=== PATIENT | female | born 1960 | race Caucasian/White ===

== ENCOUNTER 2017-06-29 10:44 | Observation (INO) | payer OTHER ==
[2017-06-29] VITALS (387 sets, daily range): BP systolic 90–122; BP diastolic 71–81; PULSE 57–66; TEMP 97; O2SAT 89–100
[~2017-06-29] VITALS: Ht 157.5 cm; Wt 44.5 kg
[~2017-06-29 10:44] MED LIST: CATAPRES 0.1MG0.1 MG PO; CELEXA40 MG PO; CEPHALEXIN500 M1 PO; CLONIDINE0.1 MG PO; COREG 25MG25 MG/TAB PO; COREG25 MG PO; ESTRING0.0075 MG/; GABAPENTIN300 MG PO; GLUCOSAMINE & C1 CAP PO; MS CONTIN 330 MG/TAB PO; MULTIPLE VITAMI1 CAP PO; NAMENDA XR 7 PO; NATURE'S BLE1000 MCG PO; NEURONTIN300 MG/CAP PO; NORCO 325 MG-101 TA1 PO; NORCO 325 MG-7.1 TAB PO; NORVASC 10MG10 MG PO; OXYCODONE5 MG PO; PERCOCET 325 MG1 TA3 PO; PERCOCET 325 MG1 TAB PO; PERCR 7.5; PERCR 7.5 PO; PERIDEX (CHLOR480 ML MM; PHENERGAN 25 TA25 MG PO; PREMARIN 0.60.625 M1 PO; PREMPRO 0.3 MG-1 TAB PO; REQUIP 1MG T1 MG/TAB PO; REQUIP0.25 MG PO; REQUIP5 MG PO; SOMA 350MG350 MG/TAB PO; SOMA350 MG PO; ULTRAM 50MG TAB50 MG PO; VALIUM 5MG T5 MG/TAB PO; VICODIN 5/5001 UDTAB PO
[2017-06-29 12:05] LABS: BASO % 0.4 % (0.0-2.0); EOS # 0.3 (0.0-0.7); EOS % 3.1 % (0-4.0); GRAN % 54.1 % (42.2-75.2); LYMPH # 3.3 (1.2-3.4); LYMPH % 35.8 % (20.0-51.0); MEAN CELL VOLUME 92 fl (80.0-100.0); MEAN CORPUSCULAR HGB CONC 34 g/dl (33.0-37.0); MONO # 0.6 (0.1-0.6); MONO % 6.4 % (1.7-9.3); PLATELET COUNT 210 K/mm3 (130-400); RED BLOOD COUNT 3.55 M/mm3 (4.10-5.30); REDCELL DISTRIBUTION WIDTH-CV 15.3 % (11.5-14.5); WHITE BLOOD COUNT 9.2 K/mm3 (4.8-10.8)
[2017-06-29 12:10] LABS: HEMATOCRIT 32.7 % (37.0-47.0); MEAN CORPUSCULAR HEMOGLOBIN 31 pg (27.0-31.0)
[2017-06-29 12:16] LABS: ADJUSTED CALCIUM 8.8 mg/dL (8.4-10.2); ALBUMIN 3.8 gm/dL (3.5-5.0); BILIRUBIN,TOTAL 0.4 mg/dL (0.0-1.0); C-REACTIVE PROTEIN 1.4 mg/dL (0.0-0.9); CALCIUM 8.6 mg/dL (8.4-10.2); CREATININE, serum 0.81 mg/dL (0.52-1.25); POTASSIUM 3.9 mmol/L (3.4-5.0); TOTAL PROTEIN 6.8 gm/dL (6.4-8.2)
[2017-06-29 12:33] LABS: ARTERIAL BLD GAS O2 SATURATION 94.5 % (92-100); ARTERIAL BLOOD GAS BASE EXCESS 2.3 (-2-2); ARTERIAL BLOOD GAS HCO3 25.8 meq/L (22-26); ARTERIAL BLOOD GAS PHT 7.47 C (7.35-7.45); ARTERIAL BLOOD GAS PO2 66.5 mmHg (80-100); ARTERIAL BLOOD GAS PO2T 66.5 (80-100); ARTERIAL BLOOD GAS pH 7.47 (7.35-7.45); OXYHEMOGLOBIN 89.8 %
[2017-06-29 12:34] LABS: ATS? YES
[2017-06-29 13:06] LABS: PH 5 (5-8); SQUAMOUS EPITHELIAL 0-2 /hpf; URINE APPEARANCE Clear; URINE BACTERIA Rare /hpf; URINE BILIRUBIN Negative (NEGATIVE); URINE BLOOD Negative (NEGATIVE); URINE COLOR Yellow; URINE GLUCOSE Negative (NEGATIVE); URINE KETONE Negative (NEGATIVE); URINE RBC 0-2 /hpf; URINE UROBILINOGEN Negative (NEGATIVE); URINE WBC 0-2 /hpf
[2017-06-29 13:13] LABS: AMPHETAMINE URINE NEGATIVE; BARBITURATES URINE NEGATIVE; BENZODIAZEPINES URINE POSITIVE; BUPRENORPHINE URINE NEGATIVE; METHADONE URINE NEGATIVE; OPIATES URINE POSITIVE; OXYCODONE URINE POSITIVE; PHENCYCLIDINE URINE NEGATIVE; PROPOXYPHENE URINE NEGATIVE; THC CANNABINOIDS URINE NEGATIVE
[2017-06-30] VITALS (331 sets, daily range): BP systolic 107–125; BP diastolic 67–84; PULSE 56–68; TEMP 96.8–97.9; O2SAT 92–100
[2017-06-30 06:14] LABS: BASO # 0.1 (0.0-0.2); BASO % 0.7 % (0.0-2.0); EOS # 0.2 (0.0-0.7); EOS % 3.5 % (0-4.0); GRAN # 3.2 (1.4-6.5); GRAN % 46.5 % (42.2-75.2); LYMPH % 43.6 % (20.0-51.0); MEAN CELL VOLUME 91 fl (80.0-100.0); MEAN CORPUSCULAR HGB CONC 33 g/dl (33.0-37.0); MEAN PLATELET VOLUME 10.2 fl (7.4-10.4); MONO # 0.4 (0.1-0.6); MONO % 5.6 % (1.7-9.3); PLATELET COUNT 178 K/mm3 (130-400); RED BLOOD COUNT 3.64 M/mm3 (4.10-5.30); REDCELL DISTRIBUTION WIDTH-CV 15.4 % (11.5-14.5); WHITE BLOOD COUNT 6.9 K/mm3 (4.8-10.8)
[2017-06-30 06:16] LABS: HEMATOCRIT 33.1 % (37.0-47.0); MEAN CORPUSCULAR HEMOGLOBIN 30 pg (27.0-31.0)
[2017-06-30 06:30] LABS: ADJUSTED CALCIUM 8.7 mg/dL (8.4-10.2); ALBUMIN 3.1 gm/dL (3.5-5.0); BILIRUBIN,TOTAL 0.3 mg/dL (0.0-1.0); CREATININE, serum 0.64 mg/dL (0.52-1.25); POTASSIUM 3.3 mmol/L (3.4-5.0); TOTAL PROTEIN 5.8 gm/dL (6.4-8.2)
== END 2017-06-30 11:50 | disposition home or self-care (01) ==
LOC: COL.ER 10:44 → ICU 14:33
PROVIDERS: Family Medicine; Internal Medicine; Nurse Practitioner
DX: R41.82 Altered mental status, unspecified (principal); T40.601A Poisoning by unspecified narcotics, accidental (unintentional), initial encounter; T40.2X1A Poisoning by other opioids, accidental (unintentional), initial encounter; T42.4X1A Poisoning by benzodiazepines, accidental (unintentional), initial encounter; Y92.810 Car as the place of occurrence of the external cause; I10 Essential (primary) hypertension; J45.909 Unspecified asthma, uncomplicated; E87.6 Hypokalemia
CPT/HCPCS: G0378; J1650; J2060; J2310; J7030

== ENCOUNTER → 2019-02-22 | Outpatient (CLI) | payer BC ==
[~2019-02-22] VITALS: Ht 157.5 cm; Wt 48.3 kg
[~2019-02-22] MED LIST changes: +BIOTIN10000 MC1 PO
[2019-02-22 14:30] VITALS: BP 120/79; PULSE 68
[2019-02-22 15:10] VITALS: BP 146/94; PULSE 71
--- NOTE | 2019-02-22 15:25 | NUR ---
pt out to car per wheelchair. Pain unchanged. Pt up and into car without difficulty.
== END ==
LOC: COL.RAD 13:30
DX: M54.12 Radiculopathy, cervical region (principal)
CPT/HCPCS: J1100; Q9965

== ENCOUNTER → 2019-03-07 | Outpatient (CLI) | payer BC | LOC: COL.RAD 07:20 | DX: M50.122 Cervical disc disorder at C5-C6 level with radiculopathy (principal); M48.02 Spinal stenosis, cervical region; M43.12 Spondylolisthesis, cervical region ==

== ENCOUNTER 2020-04-19 11:02 | Day surgery (SDC) | payer BC ==
[~2020-04-19] VITALS: Ht 157.5 cm; Wt 67.2 kg
[2020-04-19 11:19] VITALS: BP 122/84; PULSE 68; TEMP 97.9
[2020-04-19] MEDS ORDERED: VIIBRYD40 MG PO (11:33)
[2020-04-19] MEDS ORDERED: DEPAKOTE 250MG250 MG PO (11:34)
[2020-04-19] MEDS ORDERED: PROVENTIL0.09 MG/A1 IH (11:45)
[2020-04-19 12:15] VITALS: BP 126/97; PULSE 68; TEMP 98.3
--- NOTE | 2020-04-19 12:15 | NUR ---
Patient arrives to [facility] via cart, accompanied by endo RN Courtney Arambula. Bedside report is received. The patient needs to void. She ambulates to the restroom and then returns to room. Monitoring is applied -VSS and WNL on room air. SHe is alert and oriented. She denies pain or nausea. She is offered and receives water and a muffin.
[2020-04-19 12:30] VITALS: BP 118/77; PULSE 55
--- NOTE | 2020-04-19 12:30 | NUR ---
Patient is resting comfortably in room. Tolerating PO well. Denies pain, nausea, or need.
--- NOTE | 2020-04-19 12:44 | NUR ---
Dr. Riojas at the bedside at this time.
[2020-04-19 12:45] VITALS: BP 122/80; PULSE 60
--- NOTE | 2020-04-19 12:45 | NUR ---
Patient resting comfortably in room. Denies pain, nausea, or need.
--- NOTE | 2020-04-19 12:55 | NUR ---
Patient has met discharge criteria. Discharge instructions are discussed. She denies any questions and verbalizes understanding. PIV is removed with catheter intact and hemostasis achieved. She changes to her clothing independently. She is escorted to the exit via wheelchair by staff. She is discharged to home with ride in private vehicle at 1255.
== END 2020-04-19 12:55 | disposition home or self-care (01) ==
LOC: SDCO 11:02
DX: Z12.11 Encounter for screening for malignant neoplasm of colon (principal); K57.30 Diverticulosis of large intestine without perforation or abscess without bleeding; K64.0 First degree hemorrhoids; Z11.59 Encounter for screening for other viral diseases; Z86.010 Personal history of colon polyps; Z88.5 Allergy status to narcotic agent; Z88.8 Allergy status to other drugs, medicaments and biological substances; Z90.710 Acquired absence of both cervix and uterus; Z90.49 Acquired absence of other specified parts of digestive tract
CPT/HCPCS: J2704; J7030

== ENCOUNTER 2021-01-22 14:06 | Emergency (ER) | payer BC ==
[~2021-01-22] VITALS: Ht 157.5 cm; Wt 49.6 kg
[~2021-01-22 14:06] MED LIST changes: +DEPAKOTE 250MG250 MG PO; +PROVENTIL0.09 MG/A1 IH; +VIIBRYD40 MG PO
[2021-01-22 19:30] VITALS: BP 121/75; PULSE 56; TEMP 97.6
[2021-01-23 12:56] LABS: COLLECTION METHOD CLEAN CATCH
[2021-01-23 14:05] LABS: PH 7 (5-8); SQUAMOUS EPITHELIAL None Seen /hpf; URINE APPEARANCE Clear; URINE BACTERIA Rare /hpf; URINE BILIRUBIN Negative (NEGATIVE); URINE BLOOD Negative (NEGATIVE); URINE COLOR Straw; URINE GLUCOSE Negative (NEGATIVE); URINE KETONE Negative (NEGATIVE); URINE LEUKOCYTE ESTERASE Negative (NEGATIVE); URINE NITRATE Negative (NEGATIVE); URINE PROTEIN(semi-quant) Negative (NEGATIVE); URINE RBC 0-2 /hpf; URINE UROBILINOGEN Negative (NEGATIVE)
[2021-01-23 14:06] LABS: ALANINE AMINOTRANSFERASE 14 U/L (4-34); ALBUMIN 3.8 gm/dL (3.5-5.0); ALKALINE PHOSPHATASE 64 U/L (50-136); ANION GAP 3 mmol/L (7-16); AST,SGOT 29 U/L (15-37); BILIRUBIN,TOTAL 0.2 mg/dL (0.0-1.0); BLOOD UREA NITROGEN 10 mg/dL (7-17); CALCIUM 8.6 mg/dL (8.4-10.2); CARBON DIOXIDE 32 mmol/L (22-30); CHLORIDE 106 mmol/L (98-107); CREATININE, serum 0.73 (0.52-1.25); GLUCOSE 82 mg/dL (74-106); POTASSIUM 3.6 mmol/L (3.4-5.0); SODIUM 140 mmol/L (137-145); TOTAL PROTEIN 6.6 gm/dL (6.4-8.2); TRICYCLIC ANTIDEPRESS URINE NEGATIVE
[2021-01-23 14:07] LABS: ALCOHOL(ethanol),MEDICAL < 10 mg/dL
[2021-01-23 23:42] LABS: BASO # 0.1 (0.0-0.2); BASO % 0.6 % (0.0-2.0); EOS # 0.3 (0.0-0.7); EOS % 4.4 % (0-4.0); GRAN # 3.6 (1.4-6.5); GRAN % 46.1 % (42.2-75.2); HEMOGLOBIN 11.2 g/dl (12.5-16.0); LYMPH # 3.4 (1.2-3.4); LYMPH % 44.2 % (20.0-51.0); MEAN CELL VOLUME 95 fl (80.0-100.0); MEAN CORPUSCULAR HEMOGLOBIN 31 pg (27.0-31.0); MEAN CORPUSCULAR HGB CONC 32 g/dl (33.0-37.0); MEAN PLATELET VOLUME 9.6 fl (7.4-10.4); MONO # 0.3 (0.1-0.6); MONO % 4.4 % (1.7-9.3); PLATELET COUNT 255 K/mm3 (130-400); RED BLOOD COUNT 3.67 M/mm3 (4.10-5.30)
== END 2021-01-22 19:45 | disposition home or self-care (01) ==
LOC: COL.ER 14:06
PROVIDERS: Emergency Medicine
DX: R53.83 Other fatigue (principal); F19.10 Other psychoactive substance abuse, uncomplicated; I10 Essential (primary) hypertension; F17.210 Nicotine dependence, cigarettes, uncomplicated; Z32.02 Encounter for pregnancy test, result negative; Z88.6 Allergy status to analgesic agent; Z88.8 Allergy status to other drugs, medicaments and biological substances; Z79.51 Long term (current) use of inhaled steroids

== ENCOUNTER → 2021-10-29 | Outpatient (CLI) | payer BC | LOC: COL.RAD 13:57 | DX: M46.1 Sacroiliitis, not elsewhere classified (principal) | CPT/HCPCS: G0260; J3301 ==

== ENCOUNTER → 2022-03-11 | Outpatient (CLI) | payer BC | LOC: COL.RAD 07:57 | DX: K21.9 Gastro-esophageal reflux disease without esophagitis (principal) ==

== ENCOUNTER → 2022-04-16 | Outpatient (CLI) | payer BC | LOC: COL.VAS 14:12 | DX: R42 Dizziness and giddiness (principal); R60.9 Edema, unspecified ==

== ENCOUNTER → 2022-05-07 | Outpatient (CLI) | payer BC | LOC: COL.RAD 10:58 | DX: K57.90 Diverticulosis of intestine, part unspecified, without perforation or abscess without bleeding (principal); K83.9 Disease of biliary tract, unspecified ==

== ENCOUNTER → 2022-07-01 | Outpatient (CLI) | payer BC | LOC: COL.RAD 12:42 | DX: R14.0 Abdominal distension (gaseous) (principal) ==

== ENCOUNTER → 2022-08-26 | Outpatient (CLI) | payer BC | LOC: COL.RAD 07:25 | DX: R14.0 Abdominal distension (gaseous) (principal); K83.8 Other specified diseases of biliary tract; K76.89 Other specified diseases of liver; Z90.49 Acquired absence of other specified parts of digestive tract | CPT/HCPCS: Q9967 ==

== ENCOUNTER 2023-09-22 11:00 | Outpatient (RCR) | payer OTHER ==
[2023-09-17 16:37] VITALS: BP 130/87; PULSE 79; TEMP 98.4
--- NOTE | 2023-09-17 17:32 | NUR ---
pt tolerated initital iron infusion well. pt was monitored for 30 minutes following infusion and pt remained free from signs of allergic and adverse reactions. pt's iv was discontinued upon discharge. pt ambulated independently to [facility] and vital signs remained within normal limits.
[2023-09-20 15:40] VITALS: BP 118/70; PULSE 74; TEMP 98.5
[~2023-09-22] VITALS: Ht 157.5 cm; Wt 56.0 kg
[2023-09-22 11:57] VITALS: BP 147/89; PULSE 66; TEMP 97.7
== END 2023-09-22 12:18 ==
LOC: EUO 11:00
DX: D50.9 Iron deficiency anemia, unspecified (principal)
CPT/HCPCS: J1756

== ENCOUNTER 2023-11-26 05:55 | Emergency (ER) | payer OTHER ==
[~2023-11-26] VITALS: Ht 157.5 cm; Wt 54.5 kg
[~2023-11-26 05:55] MED LIST changes: +CORTEF 10MG TAB10 MG PO; +CORTEF 20MG TAB20 MG PO; +LASIX 20MG TABL20 MG PO; +MS CONTIN 660 MG/TAB PO; +PROTONIX 40MG T40 MG PO; +REGLAN 5MG T5 MG/TAB PO; +SINGULAIR 110 MG/TAB PO; +TIROSINT50 MC1 PO; +VIIBRYD20 MG PO; -VIIBRYD40 MG PO; +ZEBETA10 MG PO
[2023-11-26 06:02] VITALS: TEMP 97.5
[2023-11-26 06:33] LABS: BASO % 0.3 % (0.0-2.0); GRAN # 9.5 K/mm3 (1.4-6.5); GRAN % 79.6 % (42.2-75.2); HEMATOCRIT 40.8 % (37.0-47.0); HEMOGLOBIN 13.3 g/dl (12.5-16.0); LYMPH # 1.7 K/mm3 (1.2-3.4); MEAN CELL VOLUME 90 fl (80.0-100.0); MEAN CORPUSCULAR HEMOGLOBIN 29 pg (27-31); MEAN CORPUSCULAR HGB CONC 33 g/dl (33.0-37.0); MEAN PLATELET VOLUME 9.4 fl (7.4-10.4); MONO # 0.7 K/mm3 (0.1-0.6); MONO % 5.5 % (1.7-9.3); PLATELET COUNT 433 K/mm3 (130-400); RED BLOOD COUNT 4.52 M/mm3 (4.10-5.30); REDCELL DISTRIBUTION WIDTH-CV 20.3 % (11.5-14.5)
[2023-11-26 06:49] LABS: TROPONIN-I < 0.010 ng/mL (0.00-0.033)
[2023-11-26 06:53] LABS: ALANINE AMINOTRANSFERASE 17 U/L (0-55); ALBUMIN 3.9 gm/dL (3.4-4.8); ALKALINE PHOSPHATASE 120 U/L (40-150); ANION GAP 17 mmol/L (7-16); AST,SGOT 14 U/L (5-34); BILIRUBIN,TOTAL 0.5 mg/dL (0.2-1.2); BLOOD UREA NITROGEN 12 mg/dL (10-20); CALCIUM 10.1 mg/dL (8.4-10.2); CARBON DIOXIDE 23 mmol/L (23-31); CHLORIDE 105 mmol/L (98-107); CREATININE, serum 0.97 mg/dL (0.57-1.11); GLUCOSE 108 mg/dL (70-99); LIPASE 312 U/L (8-78); SODIUM 145 mmol/L (136-145)
[2023-11-26 08:08] LABS: COLLECTION METHOD CLEAN CATCH
[2023-11-26 08:28] LABS: PH 7.5 (5.0-8.5); URINE APPEARANCE Clear (CLEAR/HAZY); URINE BLOOD TRACE-INTACT (NEGATIVE); URINE COLOR Yellow (YELLOW); URINE GLUCOSE Negative (NEGATIVE); URINE KETONE 1+ (NEGATIVE); URINE NITRATE Negative (NEGATIVE); URINE PROTEIN(semi-quant) TRACE (NEGATIVE); URINE UROBILINOGEN 0.2 E.U/dL (0.2-1.0)
[2023-11-26 08:29] LABS: SQUAMOUS EPITHELIAL 0-2 /hpf (0-10); URINE RBC 0-2 /hpf (0-2)
[2023-11-26] MEDS ORDERED: REGLAN 10MG10 MG/TAB PO (10:32)
[2023-11-26 11:39] VITALS: BP 151/83; PULSE 52
== END 2023-11-26 11:40 | disposition home or self-care (01) ==
LOC: COL.ER 05:55
PROVIDERS: Emergency Medicine
DX: R11.2 Nausea with vomiting, unspecified (principal); R10.84 Generalized abdominal pain; R19.7 Diarrhea, unspecified; R74.8 Abnormal levels of other serum enzymes
CPT/HCPCS: J2405; J2765; J3010; J7030; Q9967

== ENCOUNTER 2023-12-31 07:00 | Inpatient (IN) | payer OTHER ==
[2023-12-31] VITALS (7 sets, daily range): BP systolic 106–125; BP diastolic 59–73; PULSE 84–100; TEMP 97.9–99.5
[~2023-12-31] VITALS: Ht 157.5 cm; Wt 52.3 kg
[~2023-12-31 07:00] MED LIST changes: +REGLAN 10MG10 MG/TAB PO
[2023-12-31] MEDS ORDERED: LR 1,000 ML IV ONE (07:30)
[2023-12-31] MEDS ORDERED: Ondansetron 4 MG/2 ML VIAL IV ONE (07:30)
[2023-12-31 07:55] LABS: BASO % 0.2 % (0.0-2.0); EOS % 0.1 % (0.0-4.0); GRAN # 11.5 K/mm3 (1.4-6.5); GRAN % 85.8 % (42.2-75.2); HEMATOCRIT 47.6 % (37.0-47.0); HEMOGLOBIN 16.1 g/dl (12.5-16.0); LYMPH # 1.1 K/mm3 (1.2-3.4); LYMPH % 8.3 % (20.0-51.0); MEAN CELL VOLUME 90 fl (80.0-100.0); MEAN CORPUSCULAR HEMOGLOBIN 31 pg (27-31); MEAN CORPUSCULAR HGB CONC 34 g/dl (33.0-37.0); MEAN PLATELET VOLUME 9.1 fl (7.4-10.4); MONO # 0.6 K/mm3 (0.1-0.6); MONO % 4.6 % (1.7-9.3); PLATELET COUNT 233 K/mm3 (130-400); RED BLOOD COUNT 5.28 M/mm3 (4.10-5.30); REDCELL DISTRIBUTION WIDTH-CV 18.3 % (11.5-14.5)
[2023-12-31 08:11] LABS: ALBUMIN 3.7 gm/dL (3.4-4.8); BILIRUBIN,TOTAL 0.8 mg/dL (0.2-1.2); CALCIUM 9.9 mg/dL (8.4-10.2); CREATININE, serum 3.58 mg/dL (0.57-1.11)
[2023-12-31 08:13] LABS: POTASSIUM 2.4 mmol/L (3.5-4.5)
[2023-12-31 08:19] LABS: TROPONIN-I 0.051 ng/mL (0.00-0.033)
[2023-12-31] MEDS ORDERED: Potassium Chloride 100 ML IV ONE (08:45)
[2023-12-31] MEDS ORDERED: NS 1,000 ML IV ONE (08:45)
[2023-12-31] MEDS ORDERED: Ondansetron 4 MG/2 ML VIAL IV PRN (09:15)
[2023-12-31] MEDS ORDERED: Acetaminophen 500 MG TAB PO PRN (09:15)
[2023-12-31] MEDS ORDERED: Vancomycin 125 MG CAP PO SCH (09:30)
[2023-12-31] MEDS ORDERED: 1/2 NS & 20 mEq KCl 1,000 ML IV SCH (09:30)
[2023-12-31 10:00] LABS: CLOSTRIDIUM DIFF A/B POS
--- NOTE | 2023-12-31 11:53 | NUR ---
Patient arrived to the medical unit, R [id number], alert and oriented x 4, states pain in her abdomen 05/08. Assessment completed, 1/2 NS with K and K+ supplement provided per orders.
[2023-12-31 15:47] LABS: CALCIUM 9.1 mg/dL (8.4-10.2); CREATININE, serum 3.45 mg/dL (0.57-1.11); MAGNESIUM 1.7 mg/dL (1.6-2.6)
[2023-12-31 15:59] LABS: POTASSIUM 2.8 mmol/L (3.5-4.5)
[2023-12-31] MEDS ORDERED: Nicotine 14 MG DAILY PATCH TD PRN (16:00)
[2023-12-31] MEDS ORDERED: Heparin 5,000 UNITS/ML 1 ML VIAL SQ SCH (16:00)
[2023-12-31] MEDS ORDERED: Magnesium Sulfate 4% 50 ML IV ONE (16:15)
[2023-12-31] MEDS ORDERED: diazePAM 5 MG TAB PO SCH (16:29)
[2023-12-31] MEDS ORDERED: Albuterol 0.021% Neb Soln 0.63 MG/3 ML UD IH PRN (16:45)
[2023-12-31] MEDS ORDERED: Gabapentin 300 MG CAP PO SCH (21:00)
[2024-01-01] VITALS (12 sets, daily range): BP systolic 98–129; BP diastolic 66–81; PULSE 64–89; TEMP 97.4–98.2
--- NOTE | 2024-01-01 04:33 | NUR ---
patient lying in bed alert and oriented x4. pt denies chest pain and shortness of breath. reports pain in back and hips as 7/10, scheduled pain meds provided per orders. IV in LAC is patent, site is clean dry and intact with 1/2 NS with 20 mEq KCL running at 125 ml/hr. pt experienced some vomiting of small amounts at 2215, zofran given for continued nausea per request. pt ambulates with steady gait and calls when needing assistance. no remarkable skin findings noted. pt hasno further needs, questions or concerns at this time. call light within reach. will continue to monitor.
[2024-01-01] MEDS ORDERED: Vilazodone 10 MG TAB PO SCH (09:00)
[2024-01-01] MEDS ORDERED: rOPINIRole 0.5 MG TAB PO SCH ×2 (09:00→21:00)
--- NOTE | 2024-01-01 09:20 | NUR ---
PT LAYING IN BED UPON ENTERING. ASSESSMENT DONE, MEDS GIVEN PER ORDER. PT DENIES PAIN AT THIS TIME. LEFT AC IV PATENT WITH FLUIDS RUNNING PER ORDER. PT ON 2.5L NASAL CANNULA AND DENIES SHORTNESS OF BREATH AT THIS TIME. PT REPORTS A NONPRODUCTIVE COUGH AT THIS TIME THAT GIVES HER CHEST DISCOMFORT. UPPER LOBES CLEAR AND COARSE CRACKLES HEARD IN BILATERAL BASES. PT DENIES NEEDS AT THIS TIME. BED IN LOWEST POSITION, CALL LIGHT IN REACH.
[2024-01-01 10:23] LABS: CALCIUM 8.3 mg/dL (8.4-10.2); CREATININE, serum 2.22 mg/dL (0.57-1.11); MAGNESIUM 2.8 mg/dL (1.6-2.6); POTASSIUM 3.6 mmol/L (3.5-4.5)
[2024-01-01] MEDS ORDERED: Hydrocortisone 10 MG TAB PO SCH (11:00)
[2024-01-01] MEDS ORDERED: Benzonatate 100 MG CAP PO PRN (12:45)
[2024-01-01 14:24] LABS: BASO % 0.1 % (0.0-2.0); GRAN # 7.9 K/mm3 (1.4-6.5); GRAN % 87.9 % (42.2-75.2); LYMPH # 0.7 K/mm3 (1.2-3.4); LYMPH % 7.6 % (20.0-51.0); MEAN CELL VOLUME 90 fl (80.0-100.0); MEAN CORPUSCULAR HGB CONC 34 g/dl (33.0-37.0); MEAN PLATELET VOLUME 10.4 fl (7.4-10.4); MONO # 0.4 K/mm3 (0.1-0.6); MONO % 4.1 % (1.7-9.3); PLATELET COUNT 182 K/mm3 (130-400); REDCELL DISTRIBUTION WIDTH-CV 17.2 % (11.5-14.5)
[2024-01-01 14:27] LABS: HEMATOCRIT 32.3 % (37.0-47.0); HEMOGLOBIN 10.9 g/dl (12.5-16.0); MEAN CORPUSCULAR HEMOGLOBIN 30 pg (27-31)
--- NOTE | 2024-01-01 15:23 | NUR ---
PT REPORTS "CHEST PAIN, HEARTBURN IM NOT SURE". PT STATES THAT IT STARTED "30 MINUTES AGO". VITAL SIGNS STABLE AND HOSPITALIST NOTIFIED. HOSPITALIST TOLD THIS NURSE THAT HOME PROTONIX WILL BE RESUMED.
[2024-01-01] MEDS ORDERED: Mag/Al Hydrox/Simeth Susp 30 ML CUP PO PRN (15:30)
[2024-01-01 15:45] LABS: COLLECTION METHOD CLEAN CATCH
[2024-01-01 16:10] LABS: PH 5.5 (5.0-8.5); URINE APPEARANCE Cloudy (CLEAR/HAZY); URINE BACTERIA Rare /hpf (NONE SEEN); URINE BLOOD 1+ (NEGATIVE); URINE COLOR YELLOW (YELLOW); URINE GLUCOSE Negative (NEGATIVE); URINE KETONE Negative (NEGATIVE); URINE NITRATE Negative (NEGATIVE); URINE PROTEIN(semi-quant) 1+ (NEGATIVE); URINE UROBILINOGEN 0.2 E.U/dL (0.2-1.0)
[2024-01-01 16:11] LABS: URINE RBC 0-2 /hpf (0-2); URINE WBC 0-2 /hpf (0-2)
--- NOTE | 2024-01-01 19:15 | NUR ---
REPORT GIVEN TO SERGIO WHALEY
[2024-01-01] MEDS ORDERED: oxyCODONE 5 MG TAB PO ONE (21:30)
[2024-01-02] VITALS (7 sets, daily range): BP systolic 99–129; BP diastolic 61–77; PULSE 67–90; TEMP 97.6–98
[2024-01-02] MEDS ORDERED: oxyCODONE 5 MG TAB PO ONE (00:15)
--- NOTE | 2024-01-02 05:05 | NUR ---
ASSESSMENT COMPLETE FOR VALUATION MANAGER. PT COMPLAINED OF BACK PAIN. PT GIVEN MS CONTIN AND NEURONTIN FOR PAIN. PT FELT THE PAIN MEDICATION WAS EFFECTIVE. HOWEVER, PT STATES SHE GETS ROXICODONE FOR BREAK THROUGH PAIN BETWEEN HER MS CONTIN. ROXICODONE NOT FOUND ON PT'S HOME MED LIST OR HER CLAIM HISTROY. HOSPITALIST CALLED. A ONE TIME DOSE OF ROXICODONE ORDERED AND GIVEN. PT FELT THE ROXICODONE WAS EFFECTIVE. PT DENIED CHEST PAIN, PALPITATIONS, N,V,D OR DIZZINESS. CALL LIGHT WITHIN REACH.
--- NOTE | 2024-01-02 08:30 | NUR ---
PT LAYING IN BED UPON ENTERING. ASSESSMENT DONE, MEDS GIVEN PER ORDER. FLUIDS RUNNING IN LEFT AC WITHOUT COMPLICATIONS. PT ON 2L NASAL CANNULA AND DENIES SHORTNESS OF BREATH AT THIS TIME. PT DOES REPORT CHEST DISCOMFORT DUE TO COUGHING. PT REPORTS A PRODUCTIVE COUGH TODAY. CRACKLES HEARD IN BILATERAL BASES. PT REPORTS A 7/10 HEADACHE, PT GETTING SCHEDULED MS CONTIN. PT DENIES NEEDS AT THIS TIME. BED IN LOWEST POSITION, CALL LIGHT IN REACH
[2024-01-02 10:12] LABS: BASO % 0.4 % (0.0-2.0); EOS % 0.1 % (0.0-4.0); GRAN # 6.8 K/mm3 (1.4-6.5); GRAN % 84.1 % (42.2-75.2); LYMPH # 0.8 K/mm3 (1.2-3.4); LYMPH % 9.7 % (20.0-51.0); MEAN CELL VOLUME 91 fl (80.0-100.0); MEAN CORPUSCULAR HEMOGLOBIN 30 pg (27-31); MEAN CORPUSCULAR HGB CONC 33 g/dl (33.0-37.0); MEAN PLATELET VOLUME 11.2 fl (7.4-10.4); MONO # 0.4 K/mm3 (0.1-0.6); MONO % 5.1 % (1.7-9.3); PLATELET COUNT 170 K/mm3 (130-400); RED BLOOD COUNT 3.67 M/mm3 (4.10-5.30); REDCELL DISTRIBUTION WIDTH-CV 17.4 % (11.5-14.5)
[2024-01-02 10:15] LABS: HEMATOCRIT 33.3 % (37.0-47.0)
[2024-01-02 10:16] LABS: CALCIUM 8.5 mg/dL (8.4-10.2); CREATININE, serum 0.86 mg/dL (0.57-1.11); MAGNESIUM 2.5 mg/dL (1.6-2.6); POTASSIUM 3.9 mmol/L (3.5-4.5)
[2024-01-02] MEDS ORDERED: Potassium Bicarbonate/Citrate 20 MEQ Effervescent TAB PO ONE (11:00)
[2024-01-02] MEDS ORDERED: VANCOCIN H125 MG/CAP PO (14:12)
[2024-01-02] MEDS ORDERED: PROTONIX 40MG T40 MG PO (14:14)
--- NOTE | 2024-01-02 15:00 | NUR ---
IV AND TELE REMOVED, PT DRESSED IN PERSONAL CLOTHES. PT GIVEN DISCHARGE INSTRUCTIONS AND VERBALIZED UNDERSTANDING. PT DENIES NEEDS AT THIS TIME AND ESCORTED TO PERSONAL VEHICLE VIA WHEELCHAIR BY SHERI HU.
== END 2024-01-02 15:00 | disposition home or self-care (01) | DRG 372 ==
LOC: COL.ER 07:00 → MEDICAL 09:00
PROVIDERS: Emergency Medicine; Nurse Practitioner Family; ADMIT Internal Medicine
DX: A04.72 Enterocolitis due to Clostridium difficile, not specified as recurrent (principal); N17.9 Acute kidney failure, unspecified; I10 Essential (primary) hypertension; F17.210 Nicotine dependence, cigarettes, uncomplicated; G89.29 Other chronic pain; K21.9 Gastro-esophageal reflux disease without esophagitis; J45.909 Unspecified asthma, uncomplicated; F41.9 Anxiety disorder, unspecified; F32.A Depression, unspecified; M54.9 Dorsalgia, unspecified; M54.2 Cervicalgia; E03.9 Hypothyroidism, unspecified; E86.0 Dehydration; R79.89 Other specified abnormal findings of blood chemistry; E87.6 Hypokalemia; E23.7 Disorder of pituitary gland, unspecified; M19.90 Unspecified osteoarthritis, unspecified site; G25.81 Restless legs syndrome; Z86.74 Personal history of sudden cardiac arrest; Z90.710 Acquired absence of both cervix and uterus; Z90.49 Acquired absence of other specified parts of digestive tract; Z88.6 Allergy status to analgesic agent; Z88.8 Allergy status to other drugs, medicaments and biological substances; Z91.048 Other nonmedicinal substance allergy status; Z79.890 Hormone replacement therapy; Z79.899 Other long term (current) drug therapy; Z23 Encounter for immunization
CPT/HCPCS: J1644; J2405; J3360; J3475; J3480; J7030; J7120

== ENCOUNTER → 2024-01-07 | Outpatient (CLI) | payer OTHER ==
[~2024-01-07] MED LIST changes: +Triamcinolone 40 MG/ML 1 ML VIAL IJ SCH; +VANCOCIN H125 MG/CAP PO
== END ==
LOC: COL.RAD 09:00
DX: M46.1 Sacroiliitis, not elsewhere classified (principal)
CPT/HCPCS: G0260; J0665; J3301

== ENCOUNTER → 2024-03-21 | Outpatient (CLI) | payer OTHER ==
[~2024-03-21] MED LIST changes: -Triamcinolone 40 MG/ML 1 ML VIAL IJ SCH
== END ==
LOC: COL.RAD 07:03
DX: K43.9 Ventral hernia without obstruction or gangrene (principal); E04.1 Nontoxic single thyroid nodule